=== PATIENT | female | born 1970 | race Caucasian/White ===

== ENCOUNTER → 2016-11-26 | Outpatient (CLI) | payer BC ==
[2016-11-26 12:20] LABS: HEMATOCRIT 30.6 % (36.0-47.0); HEMOGLOBIN 10.6 g/dL (12.0-15.5); HGB HCT DIFFERENCE 1.2; MEAN CORPUSCULAR HEMOGLOBIN 34.2 pg (27.0-33.4); MEAN CORPUSCULAR HGB CONC 34.6 g/dL (32.0-36.0); MEAN CORPUSCULAR VOLUME 99 fl (80-97); RED CELL DISTRIBUTION WIDTH 19.6 % (11.5-14.0)
[2016-11-26 12:29] LABS: WHITE BLOOD COUNT 1.7 10^3/uL (4.0-10.5)
[2016-11-26 12:49] LABS: ALANINE AMINOTRANSFERASE 24 U/L (9-52); ALBUMIN 4.2 g/dL (3.5-5.0); ALKALINE PHOSPHATASE 78 U/L (38-126); ANION GAP 8 (5-19); ASPARTATE AMINO TRANSFERASE 22 U/L (14-36); BILIRUBIN,DIRECT 0.1 mg/dL (0.0-0.4); BILIRUBIN,TOTAL 0.4 mg/dL (0.2-1.3); BLOOD UREA NITROGEN 21 mg/dL (7-20); CARBON DIOXIDE 29 mmol/L (22-30); CHLORIDE 105 mmol/L (98-107); CREATININE RESULT 1.04 mg/dL (0.52-1.25); GLUCOSE 90 mg/dL (75-110); POTASSIUM 4.9 mmol/L (3.6-5.0); SODIUM 142.3 mmol/L (137-145); TOTAL PROTEIN 6.8 g/dL (6.3-8.2)
[2016-11-26 14:54] LABS: BASOPHILS % (MANUAL) 0 % (0-2); EOSINOPHILS % (MANUAL) 0 % (0-6); LYMPHOCYTES % (MANUAL) 35 % (13-45); TOTAL CELLS COUNTED 100
[2016-11-26 14:56] LABS: ANISOCYTOSIS 2+
== END ==
LOC: OD 10:54
PROVIDERS: ATTEND Obstetrics & Gynecology Gynecology
DX: C51.9 Malignant neoplasm of vulva, unspecified (principal); D61.810 Antineoplastic chemotherapy induced pancytopenia
CPT/HCPCS: 36415; 80053; 85025

== ENCOUNTER → 2016-12-05 | Outpatient (CLI) | payer BC ==
[2016-12-05 17:01] LABS: ABSOLUTE LYMPHOCYTES (AUTO) 0.5 10^3/uL (0.5-4.7); ABSOLUTE MONOCYTES (AUTO) 0.3 10^3/uL (0.1-1.4); ABSOLUTE NEUT (AUTO) 1.3 10^3/uL (1.7-8.2); BASOPHILS % (AUTO) 0.5 % (0-2); EOSINOPHILS % (AUTO) 0.5 % (0-6); HEMATOCRIT 33.6 % (36.0-47.0); HEMOGLOBIN 11.3 g/dL (12.0-15.5); HGB HCT DIFFERENCE 0.3; MEAN CORPUSCULAR HEMOGLOBIN 33.9 pg (27.0-33.4); MEAN CORPUSCULAR HGB CONC 33.6 g/dL (32.0-36.0); MEAN CORPUSCULAR VOLUME 101 fl (80-97); MONOCYTES % (AUTO) 13.9 % (3-13); RED BLOOD COUNT 3.33 10^6/uL (3.72-5.28); RED CELL DISTRIBUTION WIDTH 19.8 % (11.5-14.0); SEGMENTED NEUTROPHILS % (AUTO) 61.1 % (42-78); WHITE BLOOD COUNT 2.2 10^3/uL (4.0-10.5)
== END ==
LOC: OD 16:00
PROVIDERS: ATTEND Obstetrics & Gynecology Gynecology
DX: D70.1 Agranulocytosis secondary to cancer chemotherapy (principal)
CPT/HCPCS: 36415; 85025

== ENCOUNTER → 2016-12-18 | Outpatient (CLI) | payer BC ==
[2016-12-18 15:27] LABS: HEMATOCRIT 31.2 % (36.0-47.0); HEMOGLOBIN 10.6 g/dL (12.0-15.5); HGB HCT DIFFERENCE 0.6; MEAN CORPUSCULAR VOLUME 100 fl (80-97); RED BLOOD COUNT 3.12 10^6/uL (3.72-5.28); RED CELL DISTRIBUTION WIDTH 18.2 % (11.5-14.0); WHITE BLOOD COUNT 11.5 10^3/uL (4.0-10.5)
[2016-12-18 15:47] LABS: BAND NEUTROPHILS % (MANUAL) 7 % (3-5); BASOPHILS % (MANUAL) 0 % (0-2); EOSINOPHILS % (MANUAL) 1 % (0-6); LYMPHOCYTES % (MANUAL) 12 % (13-45); TOTAL CELLS COUNTED 100
[2016-12-18 15:48] LABS: ALANINE AMINOTRANSFERASE 30 U/L (9-52); ALBUMIN 3.9 g/dL (3.5-5.0); ALKALINE PHOSPHATASE 111 U/L (38-126); ANION GAP 11 (5-19); ASPARTATE AMINO TRANSFERASE 21 U/L (14-36); BILIRUBIN,DIRECT 0.1 mg/dL (0.0-0.4); BILIRUBIN,TOTAL 0.3 mg/dL (0.2-1.3); BLOOD UREA NITROGEN 14 mg/dL (7-20); CALCIUM 9.4 mg/dL (8.4-10.2); CARBON DIOXIDE 27 mmol/L (22-30); CHLORIDE 105 mmol/L (98-107); CREATININE RESULT 0.81 mg/dL (0.52-1.25); GLUCOSE 93 mg/dL (75-110); MAGNESIUM 1.4 mg/dL (1.6-2.3); POTASSIUM 4.5 mmol/L (3.6-5.0); TOTAL PROTEIN 6.4 g/dL (6.3-8.2)
[2016-12-18 15:51] LABS: ANISOCYTOSIS 1+; OVALOCYTES SLIGHT; POIKILOCYTOSIS SLIGHT; TOXIC VACUOLATION PRESENT
== END ==
LOC: OD 14:55
PROVIDERS: ATTEND Obstetrics & Gynecology Gynecology
DX: C51.9 Malignant neoplasm of vulva, unspecified (principal)
CPT/HCPCS: 36415; 80053; 83735; 85025

== ENCOUNTER → 2016-12-25 | Outpatient (CLI) | payer BC ==
[2016-12-25 14:06] LABS: ABSOLUTE EOSINOPHILS # (AUTO) 0.1 10^3/uL (0.0-0.6); ABSOLUTE LYMPHOCYTES (AUTO) 0.8 10^3/uL (0.5-4.7); ABSOLUTE MONOCYTES (AUTO) 0.5 10^3/uL (0.1-1.4); ABSOLUTE NEUT (AUTO) 3.2 10^3/uL (1.7-8.2); BASOPHILS % (AUTO) 0.5 % (0-2); EOSINOPHILS % (AUTO) 1.8 % (0-6); HEMATOCRIT 31.2 % (36.0-47.0); HEMOGLOBIN 10.7 g/dL (12.0-15.5); HGB HCT DIFFERENCE 0.9; LYMPHOCYTES % (AUTO) 17.8 % (13-45); MEAN CORPUSCULAR HEMOGLOBIN 34.3 pg (27.0-33.4); MEAN CORPUSCULAR HGB CONC 34.1 g/dL (32.0-36.0); MEAN CORPUSCULAR VOLUME 101 fl (80-97); MONOCYTES % (AUTO) 9.8 % (3-13); RED CELL DISTRIBUTION WIDTH 19.1 % (11.5-14.0); SEGMENTED NEUTROPHILS % (AUTO) 70.1 % (42-78); WHITE BLOOD COUNT 4.6 10^3/uL (4.0-10.5)
[2016-12-25 14:28] LABS: ALANINE AMINOTRANSFERASE 34 U/L (9-52); ALKALINE PHOSPHATASE 87 U/L (38-126); ANION GAP 12 (5-19); ASPARTATE AMINO TRANSFERASE 26 U/L (14-36); BILIRUBIN,DIRECT 0.1 mg/dL (0.0-0.4); BILIRUBIN,TOTAL 0.3 mg/dL (0.2-1.3); BLOOD UREA NITROGEN 18 mg/dL (7-20); CALCIUM 9.2 mg/dL (8.4-10.2); CARBON DIOXIDE 23 mmol/L (22-30); CHLORIDE 110 mmol/L (98-107); CREATININE RESULT 0.91 mg/dL (0.52-1.25); GLUCOSE 99 mg/dL (75-110); POTASSIUM 4.7 mmol/L (3.6-5.0); SODIUM 145.2 mmol/L (137-145); TOTAL PROTEIN 6.7 g/dL (6.3-8.2)
== END ==
LOC: OD 13:30
PROVIDERS: ATTEND Obstetrics & Gynecology Gynecology
DX: C51.9 Malignant neoplasm of vulva, unspecified (principal)
CPT/HCPCS: 36415; 80053; 83735; 85025

== ENCOUNTER → 2017-01-08 | Outpatient (CLI) | payer BC ==
[2017-01-08 14:34] LABS: HEMATOCRIT 32.1 % (36.0-47.0); HEMOGLOBIN 10.8 g/dL (12.0-15.5); HGB HCT DIFFERENCE 0.3; MEAN CORPUSCULAR HEMOGLOBIN 34.4 pg (27.0-33.4); MEAN CORPUSCULAR HGB CONC 33.7 g/dL (32.0-36.0); MEAN CORPUSCULAR VOLUME 102 fl (80-97); RED BLOOD COUNT 3.14 10^6/uL (3.72-5.28); RED CELL DISTRIBUTION WIDTH 17.6 % (11.5-14.0); WHITE BLOOD COUNT 8.7 10^3/uL (4.0-10.5)
[2017-01-08 14:48] LABS: ALANINE AMINOTRANSFERASE 35 U/L (9-52); ALKALINE PHOSPHATASE 118 U/L (38-126); ANION GAP 13 (5-19); ASPARTATE AMINO TRANSFERASE 18 U/L (14-36); BILIRUBIN,DIRECT 0.2 mg/dL (0.0-0.4); BILIRUBIN,TOTAL 0.4 mg/dL (0.2-1.3); BLOOD UREA NITROGEN 16 mg/dL (7-20); CALCIUM 9.8 mg/dL (8.4-10.2); CARBON DIOXIDE 24 mmol/L (22-30); CHLORIDE 104 mmol/L (98-107); CREATININE RESULT 0.85 mg/dL (0.52-1.25); GLUCOSE 95 mg/dL (75-110); MAGNESIUM 1.5 mg/dL (1.6-2.3); POTASSIUM 4.8 mmol/L (3.6-5.0); SODIUM 141.2 mmol/L (137-145); TOTAL PROTEIN 6.7 g/dL (6.3-8.2)
[2017-01-08 15:18] LABS: ANISOCYTOSIS 2+; BASOPHILS % (MANUAL) 0 % (0-2); EOSINOPHILS % (MANUAL) 2 % (0-6); LYMPHOCYTES % (MANUAL) 7 % (13-45); OVALOCYTES 1+; POIKILOCYTOSIS 1+; TOTAL CELLS COUNTED 100; TOXIC GRANULATION SLIGHT; TOXIC VACUOLATION PRESENT
== END ==
LOC: OD 13:29
PROVIDERS: ATTEND Obstetrics & Gynecology Gynecology
DX: C51.9 Malignant neoplasm of vulva, unspecified (principal)
CPT/HCPCS: 36415; 80053; 83735; 85025

== ENCOUNTER 2019-10-30 16:05 | Emergency (ER) | payer SELFPAY ==
[2019-10-30] MEDS ORDERED: NORMAL SALINE 1000 ML 1,000 ML IV ONE (16:37)
--- NOTE | 2019-10-30 16:40 | ER Document Report ---
ED Medical Screen (RME) - General Chief Complaint: Passed Out Prior to Arrival Stated Complaint: POSSIBLE SYNCOPE/HEAD PRESSURE Time Seen by Provider: 10/30/19 16:28 Primary Care Provider: ARMIN INFANTE NP [Primary Care Provider] - Follow up as needed Notes: Patient is a 49-year-old female who presents to the emergency department for syncopal episode. Patient states that she originally had symptoms of head press ure 3 days ago when she was in [place]. She was evaluated by an ER there and was told that she was dehydrated. They also noted that she had sinus thickening, but no sinus infection at that time. Yesterday she ended up having some tingling in her face. Patient states that she was off balance and not feeling very well and she ended up "passing out" today. 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 Exam: Cranial nerves intact. 5 out of 5 strength in all extremities. I have greeted and performed a rapid initial assessment of this patient. A comprehensive ED assessment and evaluation of the patient, analysis of test results and completion of medical decision making process will be conducted by an additional ED providers. TRAVEL OUTSIDE OF THE [place] IN LAST 30 DAYS: No - Related Data Allergies/Adverse Reactions: No Known Allergies Allergy (Verified 10/30/19 16:26) Home Medications: MVI. asa 81. tumeric Past Medical History - Social History Chew tobacco use (# tins/day): No Frequency of alcohol use: None Drug Abuse: None Past Surgical History: Reports: Hx Section, Hx Orthopedic Surgery - left knee surgery - Immunizations Hx Diphtheria, Pertussis, Tetanus Vaccination: Yes Physical Exam - Vital signs Vitals: Temp Pulse Resp BP Pulse Ox 97.9 F 70 16 146/78 H 97 10/30/19 16:14 10/30/19 16:14 10/30/19 16:14 10/30/19 16:14 10/30/19 16:14 Course - Vital Signs Vital signs: Temp Pulse Resp BP Pulse Ox 97.9 F 70 16 146/78 H 97 10/30/19 16:14 10/30/19 16:14 10/30/19 16:14 10/30/19 16:14 10/30/19 16:14 Doctor's Discharge - Discharge Referrals: ARMIN INFANTE NP [Primary Care Provider] - Follow up as needed
[2019-10-30 17:25] LABS: ABSOLUTE EOSINOPHILS # (AUTO) 0.1 10^3/uL (0.0-0.6); ABSOLUTE LYMPHOCYTES (AUTO) 1.1 10^3/uL (0.5-4.7); ABSOLUTE MONOCYTES (AUTO) 0.4 10^3/uL (0.1-1.4); BASOPHILS % (AUTO) 0.3 % (0-2); EOSINOPHILS % (AUTO) 0.8 % (0-6); HEMATOCRIT 37.8 % (36.0-47.0); HEMOGLOBIN 13.3 g/dL (12.0-15.5); LYMPHOCYTES % (AUTO) 14.7 % (13-45); MEAN CORPUSCULAR HGB CONC 35.1 g/dL (32.0-36.0); MEAN CORPUSCULAR VOLUME 94 fl (80-97); MONOCYTES % (AUTO) 5.7 % (3-13); PLATELET COUNT 169 10^3/uL (150-450); RED BLOOD COUNT 4.01 10^6/uL (3.72-5.28); RED CELL DISTRIBUTION WIDTH 14.8 % (11.5-14.0); SEGMENTED NEUTROPHILS % (AUTO) 78.5 % (42-78); TOTAL CELLS COUNTED % (AUTO) 100 %; WHITE BLOOD COUNT 7.7 10^3/uL (4.0-10.5)
[2019-10-30 17:38] LABS: ALBUMIN 4.3 g/dL (3.5-5.0); ALKALINE PHOSPHATASE 92 U/L (38-126); ANION GAP 6 (5-19); ASPARTATE AMINO TRANSFERASE 24 U/L (14-36); BILIRUBIN,TOTAL 0.3 mg/dL (0.2-1.3); BLOOD UREA NITROGEN 22 mg/dL (7-20); CALCIUM 9.4 mg/dL (8.4-10.2); CARBON DIOXIDE 31 mmol/L (22-30); CHLORIDE 104 mmol/L (98-107); GLUCOSE 105 mg/dL (75-110); POTASSIUM 4.3 mmol/L (3.6-5.0); TOTAL PROTEIN 7.4 g/dL (6.3-8.2)
[2019-10-30 17:47] LABS: AMORPHOUS SEDIMENT,URINE TRACE /HPF; APPEARANCE,URINE CLOUDY; BILIRUBIN,URINE NEGATIVE (NEGATIVE); COLOR,URINE YELLOW; GLUCOSE, URINE NEGATIVE (NEGATIVE); KETONES,URINE NEGATIVE (NEGATIVE); LEUKOCYTE ESTERASE,URINE TRACE (NEGATIVE); NITRITE,URINE NEGATIVE (NEGATIVE); PROTEIN,URINE 100 mg/dL (NEGATIVE); URINE SPECIFIC GRAVITY 1.023; UROBILINOGEN,URINE NEGATIVE mg/dL (<2.0)
--- NOTE | 2019-10-30 22:09 | ER Document Report ---
ED General - General Chief Complaint: Passed Out Prior to Arrival Stated Complaint: POSSIBLE SYNCOPE/HEAD PRESSURE Time Seen by Provider: 10/30/19 16:28 Primary Care Provider: ARMIN INFANTE GRANITE INSTALLER [NURSE PRACTITIONER] - Follow up as needed TRAVEL OUTSIDE OF THE [place] IN LAST 30 DAYS: No - HPI Notes: Patient is a 49-year-old female who presents to the emergency department for evaluation. She states that on Thursday she was going to be heading home from [place]. This is about a 3-hour drive. She had a sudden onset of a sharp pain behind her left eye. She states it was severe, she went to the hospital. She was told they saw some thickening of her sinuses in that area, believed it to either be a migraine or some sinusitis. She was not treated with any medications. She did have a CT scan and blood work which was otherwise unremarkable. She states she had a recurrence of the pain on Thursday but not as severe. She states that she has had some intermittent numbness in that area as well on her face, sometimes all the way into her left arm. She states the numbness comes and goes as well. It only lasts 1 to 2 seconds when it happens. She states she is also had a sharp pain on the left side of her neck intermittently. All of this seemed to be getting slightly better. She was able to work without difficulty yesterday for 12 hours. She slept without difficult y. She awoke this morning, and this intermittent pain and numbness persisted. Again it only last for a few seconds when it happens but it does happen frequently. She states today she had a syncopal episode, was slumped over on her arms. She was sitting at a table. She is states she is not sure how long she was down. Bystanders woke her by shaking her, she was dazed for a few seconds, but then was awake and alert. At this point the patient does not have any pain. She denies any recent head injuries. No difficulty seeing, speaking, swallowing. She moving arms and legs without difficulty. - Related Data Allergies/Adverse Reactions: No Known Allergies Allergy (Verified 10/30/19 16:26) Home Medications: MVI. asa 81. tumeric Past Medical History - General Information source: Patient - Social History Smoking Status: Former Smoker Chew tobacco use (# tins/day): No Frequency of alcohol use: None Drug Abuse: None Family History: Reviewed & Not Pertinent, Other - "Blood clots" Patient has suicidal ideation: No Patient has homicidal ideation: No Malignancy Medical History: Reports: Other - Labial cancer, stage II, s/p surgical resection, chemotherapy, radiation Past Surgical History: Reports: Hx Section, Hx Orthopedic Surgery - left knee surgery - Immunizations Hx Diphtheria, Pertussis, Tetanus Vaccination: Yes Review of Systems - Review of Systems EENT: See HPI Cardiovascular: See HPI Musculoskeletal: See HPI Neurological/Psychological: See HPI -: Yes All other systems reviewed and negative Physical Exam - Vital signs Vitals: Temp Pulse Resp BP Pulse Ox 97.9 F 70 16 146/78 H 97 10/30/19 16:14 10/30/19 16:14 10/30/19 16:14 10/30/19 16:14 10/30/19 16:14 - Notes Notes: This is a 49-year-old female who appears her stated age in no acute distress. Vital signs reviewed, please refer to chart. Head is normocephalic, atraumatic. Pupils equal round, reactive to light. Oral mucosa is moist, uvula is midline. Neck is supple without meningismus. No carotid bruits. She has no midline tenderness or step-off. No paraspinal musculature tenderness is appreciated. Heart is regular rate and rhythm. Lungs are clear to auscultation bilaterally. Abdomen is soft, nontender, normoactive bowel sounds throughout. Extremities without cyanosis, clubbing. Posterior calves are nontender. Peripheral pulses are equal. Skin is warm and dry. Patient is awake, alert, oriented x3. Cranial nerves II - XII are grossly intact without focal neurological deficits. Strength is plus 5 out of 5 bilateral upper and lower extremities. Sensation is intact. Reflexes symmetrical. Intact [id number], rapid alternating movements, [id number]. Course - Re-evaluation Re-evalutation: 10/30/19 23:47 Patient presents emergency department for evaluation. She had a syncopal episode. She has pain behind her left eye. She has no neurological deficits. Her numbness and tingling come in "waves" that only last a second or 2. She has no nuchal rigidity. She has no neurological deficits. Her work-up here is essentially unremarkable. Given her syncope and family history of blood clots, CT of the chest was ordered to rule out PE. Multiple cystic lesions of the lungs were identified. Patient's sister has a rare syndrome which causes this, the patient is told that this should be further evaluated. At this point I do not have a clear etiology for her symptoms. I will refer her on to primary care with close follow-up. She is given Toradol for her headache. She is to return to the ED with worsening or new concerning symptoms of any sort. 10/30/19 23:49 I know I like him - Vital Signs Vital signs: Temp Pulse Resp BP Pulse Ox 97.9 F 70 19 139/93 H 98 10/30/19 16:14 10/30/19 16:14 10/30/19 22:01 10/30/19 22:00 10/30/19 22:01 - Laboratory Result Diagrams: 10/30/19 17:02 10/30/19 17:02 Laboratory results interpreted by me: 10/30/19 10/30/19 10/30/19 17:02 17:02 17:02 RDW 14.8 H Seg Neutrophils % 78.5 H Carbon Dioxide 31 H BUN 22 H Urine Protein 100 H Ur Leukocyte Esterase TRACE H - Diagnostic Test Radiology reviewed: Reports reviewed Radiology results interpreted by me: 10/30/19 23:50 Chest/Abdomen CTA 10/30/19 21:45 IMPRESSION: No evidence of pulmonary embolism or other acute abnormality within the chest. Multiple thin-walled cystic lesions located throughout the lungs. Considerations include lymphocytic interstitial pneumonitis or lymphangioleiomyomatosis. Langerhans' cell histiocytosis is considered less likely as no underlying nodules are identified. TECHNICAL DOCUMENTATION: Quality ID # 436: Final reports with documentation of one or more dose reduction techniques (e.g., Automated exposure control, adjustment of the mA and/or kV according to patient size, use of iterative reconstruction technique) copyright 2011 [employer]- All Rights Reserved - EKG Interpretation by Me Additional EKG results interpreted by me: 10/30/19 23:50 Sinus mechanism. Normal axis and intervals. No acute ST changes concerning for ischemia or infarction. Discharge - Discharge Clinical Impression: Numbness and tingling of left side of face, Cystic lesions of bilateral lungs Headache Qualifiers: Headache type: unspecified Intractability: not intractable Syncope Qualifiers: Syncope type: unspecified Qualified Code(s): R55 - Syncope and collapse Condition: Stable Disposition: HOME, SELF-CARE Instructions: Syncopal Episode ([facility]), Numbness or Paresthesia ([facility]) Additional Instructions: No clear cause is found for your symptoms today. Your CT scan of your lungs did reveal multiple cystic lesions bilaterally, likely indicative of the same syndrome present in your sister. Please follow-up with primary care as discussed next week. If your symptoms worsen, or you develop new or concerning symptoms of any sort, please return immediately to the emergency department for evaluation. Referrals: ARMIN INFANTE GRANITE INSTALLER [NURSE PRACTITIONER] - Follow up as needed
--- NOTE | 2019-10-30 22:45 | EKG REPORT ---
SEVERITY:- NORMAL ECG - SINUS RHYTHM : Confirmed by: Gracie Soni MD 30-Oct-2019 22:44:38
--- NOTE | 2019-10-30 22:59 | RADIOLOGY REPORT (SQ) ---
EXAM DESCRIPTION: CT CHEST ANGIOGRAPHY WITHOUT THEN WITH IV CONTRAST COMPLETED DATE/TME: 10/30/2019 21:45 CLINICAL HISTORY: 49 years, Female, eval for PE COMPARISON: None. TECHNIQUE: Contrast enhanced CT of the chest was acquired. Images were obtained after the uneventful administration of 75 mL of Omnipaque 350 intravenous contrast. MIPS were created. Images stored on PACS. All CT scanners at this facility use dose modulation, iterative reconstruction, and/or weight based dosing when appropriate to reduce radiation dose to as low as reasonably achievable (ALARA). [facility]: Dose Right [facility]: CareDose [facility]: Dose Right [facility]: Teradose 4D [facility]: [employer] LIMITATIONS: None. FINDINGS: Central airways are patent. Lung windows show multiple thin-walled cysts of varying sizes throughout both lungs. These appear to be in a basilar predominant distribution. Lungs are otherwise clear. Mediastinal windows show no significant hilar or mediastinal lymph node enlargement. Heart and great vessels show no suspicious abnormality. The study is adequate for the evaluation of pulmonary emboli. No filling defects are identified to the proximal segmental level. Limited evaluation of the upper abdomen reveals a subcentimeter low-density lesion located within the left hepatic lobe, too small to accurately characterize. No additional suspicious findings are evident within the imaged upper abdomen. Bone windows show no destructive osseous lesions. IMPRESSION: No evidence of pulmonary embolism or other acute abnormality within the chest. Multiple thin-walled cystic lesions located throughout the lungs. Considerations include lymphocytic interstitial pneumonitis or lymphangioleiomyomatosis. Langerhans' cell histiocytosis is considered less likely as no underlying nodules are identified. TECHNICAL DOCUMENTATION: Quality ID # 436: Final reports with documentation of one or more dose reduction techniques (e.g., Automated exposure control, adjustment of the mA and/or kV according to patient size, use of iterative reconstruction technique) copyright 2011 [employer]- All Rights Reserved
[2019-10-30] MEDS ORDERED: KETOROLAC TROMETHAMINE INJ/PF 30 MG/1 ML SDV IV ONE (23:46)
[2019-10-31 00:49] VITALS: BP 153/96
== END 2019-10-31 00:47 | disposition home or self-care (01) ==
LOC: ER 16:05
DX: J98.4 Other disorders of lung (principal); R51 Headache; R55 Syncope and collapse; R20.0 Anesthesia of skin; H57.12 Ocular pain, left eye; Z87.891 Personal history of nicotine dependence
CPT/HCPCS: 93005; 99284; 96360; 36415; 85025; 80053; 81001; 71275; 93010; J7030